=== PATIENT | female | born 1995 | race Caucasian/White ===

== ENCOUNTER 2021-04-14 14:02 | Emergency (ER) | payer OTHER, SELFPAY ==
[2021-04-14 14:10] VITALS: BP 101/72; PULSE 116; RESP 24; TEMP 36.6; O2SAT 100
[2021-04-14 14:32] VITALS: BP 101/72; PULSE 116; RESP 24; TEMP 36.6; O2SAT 100
--- NOTE | 2021-04-14 14:47 | ED.URI ---
HPI - URI/Sore Throat General Chief Complaint: Upper Respiratory Infection Stated Complaint: upper Respiratory Time Seen by Provider: 04/14/21 14:36 Source: patient and RN notes reviewed Mode of arrival: ambulatory Limitations: no limitations History of Present Illness HPI Narrative: Patient presents today complaining of chest tightness and productive cough x1 week with shortness of breath. History of asthma. She has been taking Mucinex since last night. Patient was seen by her PCP yesterday who told her to continue to take her albuterol inhaler. MD elicited complaint: cough Related Data Home Medications Medication Instructions Recorded Confirmed albuterol sulfate 2 puff INHALATION Q4-6H PRN 04/14/21 04/14/21 duloxetine 40 mg PO DAILY 04/14/21 04/14/21 fexofenadine [Bria] 180 mg PO DAILY 04/14/21 04/14/21 fluticasone propion-salmeterol 2 inh INHALATION BID 04/14/21 04/14/21 [[facility]] medroxyprogesterone 150 mg IM [id number] 04/14/21 04/14/21 meloxicam 15 mg PO DAILY 04/14/21 04/14/21 omeprazole 40 mg PO DAILY 04/14/21 04/14/21 pregabalin 75 mg PO DAILY 04/14/21 04/14/21 ubrogepant [Ubrelvy] 50 mg PO DAILY 04/14/21 04/14/21 Allergies Allergy/AdvReac Type Severity Reaction Status Date / Time iodine Allergy Intermediate Rash Verified 04/14/21 14:20 codeine AdvReac Unknown Difficulty Verified 04/14/21 14:19 Breathing Review of Systems Review of Systems: CONSTITUTIONAL: Denies body aches, fever, chills, or sweats. EYES: Denies visual changes, redness, or discharge. ENT: Denies rhinorrhea, congestion, sore throat, or otalgia. CARDIOVASCULAR: Denies chest pain, palpitations, or edema. RESPIRATORY: + Cough, shortness of breath GASTROINTESTINAL: Denies abdominal pain, nausea, vomiting, or diarrhea. GENITOURINARY: Denies dysuria or hematuria. SKIN: Denies rash, itching, or wounds. MUSCULOSKELETAL: Denies back pain, joint pain, or myalgia. NEUROLOGIC: Denies headache, numbness, tingling, or weakness. PSYCH: Denies depression or anxiety. [facility] Past Medical History Medical History (Updated 04/14/21 @ 14:54 by Moira Tyson, [employer], ) Asthma Comments At time of signature, I have reviewed and agree with nursing past medical, surgical, social and family history unless otherwise noted. Please see nursing chart for further information. There is no relevant family history pertinent to the presenting complaint Exam Narrative: GENERAL: Well-appearing, well-nourished, and in no acute distress. HEAD: Normocephalic, atraumatic. EYES: EOMI. No redness or drainage. Conjunctivae normal. ENT: Mucous membranes pink and moist. Nares clear. No rhinorrhea. TMs normal bilaterally. Throat normal. Uvula midline. NECK: Normal AROM. Supple. No lymphadenopathy. CHEST: No respiratory distress. Clear to auscultation. HEART: Regular rate and rhythm. No murmur appreciated. Normal peripheral pulses. EXTREMITIES: Normal range of motion. No edema. SKIN: Warm, dry, no rash. Capillary refill normal. Normal skin turgor. NEURO: No focal deficits. Alert and oriented x3. Gait steady. PSYCH: Anxious. Forced, quick talking Course Vital Signs Vital signs: Vital Signs Temperature 97.8 F 04/14/21 14:10 Pulse Rate 116 H 04/14/21 14:10 Respiratory Rate 24 H 04/14/21 14:10 Blood Pressure 101/72 04/14/21 14:10 Pulse Oximetry 100 04/14/21 14:10 Temperature 97.8 F 04/14/21 14:32 Pulse Rate 116 H 04/14/21 14:32 Respiratory Rate 24 H 04/14/21 14:32 Blood Pressure 101/72 04/14/21 14:32 Pulse Oximetry 100 04/14/21 14:32 Reviewed. HR and respirations normal upon exam. MDM - URI/Sore Throat Differential Diagnosis Differential diagnosis: Likely upper respiratory infection, bronchitis and other (Asthma exacerbation) Critical Care Time Critical Care Time Critical Care Time: No Discharge Plan Discharge Clinical Impression: Bronchitis Asthma exacerbation Qualifiers: Asthma severity: unspecif
== END 2021-04-14 15:00 | disposition home or self-care (01) ==
PROVIDERS: Emergency Provider Nurse Practitioner; PCP Internal Medicine
DX: J45.901 Unspecified asthma with (acute) exacerbation (principal)
CPT/HCPCS: 99203; G0463